=== PATIENT | male | born 1950 | race Hispanic/Latino ===

== ENCOUNTER 2019-02-27 20:13 | Emergency (ER) | payer MEDICARE, MEDICAID ==
[2019-02-27] MEDS ORDERED: Bacitracin Zinc 1 Packet ONE (20:55)
[2019-02-27] MEDS ORDERED: CEFAZOLIN 1 GM VIAL ONE (21:07)
[2019-02-27] MEDS ORDERED: Adacel (T-DAP) 0.5 ML SYRINGE ONE (21:07)
[2019-02-27] MEDS ORDERED: Sterile Water 100 ML ONE (21:08)
--- NOTE | 2019-02-27 22:17 | RAD ---
RIGHT FOOT THREE VIEWS: 02/27/19 The bones are mildly osteopenic which would mask some subtle fractures. There appears to be a nondisp laced fracture of the distal phalanx of the third digit near the terminal tuft. In addition, there is irregularity and a bony fragment seen at the base of the proximal phalanx of the fourth digit. I a m not sure if this is recent or longstanding. The remainder of the foot appears intact. Arterial calc ifications are noted. A calcaneal spur was seen. IMPRESSION: 1. Fracture of the distal phalanx of the third toe, most likely recent. 2. Fracture at the base of the proximal phalanx of the fourth toe at the fourth MTP joint. Age i ndeterminate but perhaps more likely old. Correlate with site of current trauma and pain. POS: HOME
== END 2019-02-27 21:27 | disposition home or self-care (01) ==
LOC: BURERS 20:13
DX: S92.531B Displaced fracture of distal phalanx of right lesser toe(s), initial encounter for open fracture (principal); J44.9 Chronic obstructive pulmonary disease, unspecified; F17.210 Nicotine dependence, cigarettes, uncomplicated; W20.8XXA Other cause of strike by thrown, projected or falling object, initial encounter
CPT/HCPCS: 90715; J0690

== ENCOUNTER 2019-03-03 21:00 | Emergency (ER) | payer MEDICARE, MEDICAID ==
--- NOTE | 2019-03-03 22:02 | CT ---
CT brain. HISTORY: Trauma. CT images brain demonstrate no evidence of acute intracranial masses, hemorrhages, strokes or contusi ons. Deep white matter ischemic changes seen. Small right medial parietal scalp hematoma seen. IMPRESSION: Deep white matter ischemic changes. No evidence of acute intracranial pathology seen.
== END 2019-03-03 22:23 | disposition home or self-care (01) ==
LOC: BURERS 21:00
DX: S00.03XA Contusion of scalp, initial encounter (principal); F17.210 Nicotine dependence, cigarettes, uncomplicated; F03.90 Unspecified dementia, unspecified severity, without behavioral disturbance, psychotic disturbance, mood disturbance, and anxiety; W19.XXXA Unspecified fall, initial encounter
CPT/HCPCS: 70450